=== PATIENT | female | born 1990 | race Caucasian/White ===

== ENCOUNTER → 2017-03-06 | Outpatient (CLI) | payer BC ==
[~2017-03-06] MED LIST: PRENTAB26 PO
== END | disposition home or self-care (01) ==
LOC: C.LABSPEC 16:27
PROVIDERS: ATTEND Physician Assistant
DX: L29.8 Other pruritus (principal)

== ENCOUNTER 2019-05-03 22:28 | Inpatient (IN) ==
[2019-05-04] MEDS ORDERED: OXYTOCIN 30 UNITS/500 ML BAG IV PRN ×3 (00:26→10:19)
[2019-05-04] MEDS: LACTATED RINGER'S 1,000 ML IV PRN ×2 (00:32→05:44)
[2019-05-04] MEDS ORDERED: PENICILLIN G POTASSIUM 6 MU in DEXTROSE 5% 250 ML IV ONE (00:45)
[2019-05-04 00:49] LABS: Hematocrit (blood only) 39.2 % (37-47); Hemoglobin 13.9 g/dL (12.0-16.0); Mean Corpuscular Hemoglobin 32.1 pg (25-34); Mean Corpuscular Volume 90.5 fL (80-100); Mean Platelet Volume 10.1 fL (7.4-10.4); Platelet Count 238 K/uL (130-400); RDW Coefficient of Variation 12.6 % (11.5-14.5); RDW Standard Deviation 41.5 fL (36.4-46.3); Red Blood Count 4.33 M/uL (4.2-5.4); White Blood Count 10.99 K/uL (4.8-10.8)
[2019-05-04 00:55] LABS: Mean Corpuscular Hgb Conc 35.5 g/dL (32-36)
[2019-05-04] MEDS ORDERED: BUPIVACAINE 0.25% 30 ML VIAL ONE (01:00)
[2019-05-04] MEDS ORDERED: ePHEDrine sulfate 50 MG/ML AMP ONE (01:00)
[2019-05-04] MEDS ORDERED: fentaNYL citrate 100 MCG/2 ML VIAL ONE (01:00)
[2019-05-04] MEDS ORDERED: fentaNYL 2MCG/ML ROPIV 1.25MG/ML 100 ML BAG EPI ONE (01:01)
[2019-05-04] MEDS ORDERED: NALOXONE HCL 0.4 MG/1 ML VIAL/CARP IV PRN (01:15)
[2019-05-04] MEDS ORDERED: ONDANSETRON INJ 2 MG/ML 2 ML VIAL IV PRN (01:15)
[2019-05-04] MEDS ORDERED: fentaNYL 2MCG/ML ROPIV 1.25MG/ML 100 ML BAG EPI PRN (01:15)
[2019-05-04] MEDS ORDERED: DiphenhydrAMINE HCL 50 MG/ML VIAL IV PRN (01:15)
[2019-05-04] MEDS ORDERED: NALOXONE HCL 1 MG in SODIUM CHLORIDE 0.9% 1000ML 1,000 ML IV PRN (01:15)
[2019-05-04] MEDS ORDERED: NALBUPHINE HCL INJ 10 MG/ML AMP IV PRN (01:15)
[2019-05-04] MEDS ORDERED: ePHEDrine sulfate 50 MG/ML AMP IV PRN (01:15)
--- NOTE | 2019-05-04 01:22 | Anesthesiology Consultation ---
Date of Service May 04, 2019 Assessment & Plan (1) Encounter for pre-operative examination: Chart Review Chart Review: Patient NOT seen in Pre Admission Testing and Acceptable Risk for Labor Epidural Consults Requested none ASA ASA2 Proposed Anesthesia Anesthesia Type: Labor Epidural Risk / Benefits Reviewed With: PT / POA / Parent / Guardian, Accepts Plan and Informed Consent Obtained History Height/Weight Height: 5 ft Weight: 62.142 kg Allergies Allergy/AdvReac Type Severity Reaction Status Date / Time No Known Drug Allergies Allergy Verified 04/30/19 15:58 Medications Home Medications Medication Instructions Recorded Confirmed Last Taken folic acid 1 tab PO DAILY 04/15/19 05/03/19 05/03/19 lactobacillus combination no.8 1 tab PO DAILY 04/23/19 05/03/19 05/03/19 Active Medications Generic Name Dose Route Start Last Admin Trade Name Freq PRN Reason Stop Dose Admin Lactated Ringer's 1,000 mls @ 125 mls/hr 05/04/19 00:26 05/04/19 01:05 Lr IV 05/06/19 00:25 125 mls/hr .Q8H PRN Infusion L&D Protocol Protocol Ropivacaine 100 ml 05/04/19 01:15 05/04/19 01:49 Epidural (L&D) EPI 05/05/19 01:14 100 ml PRN PRN Administration Pain R/T Labor Protocol NPO Date Last Intake of Fluids: 05/04/19 Time Last Intake of Fluids: 01:19 Date Last Intake of Solids: 05/04/19 Time Last Intake of Solids: 12:30 Past Medical History Medical History Carrier of group B Streptococcus History of ovarian cyst History of varicella Plantar wart of both feet Exercise / Class Metabolic Activity III < 4 Walking/Shop/Light housework Past Family History Family History Grandmother (Maternal) Breast cancer Past Surgical History Surgical History S/P colonoscopy S/P endoscopy S/P wisdom tooth extraction Past Anesthesia History No Hx of Anesthesia Complications History of PONV No Hx of PONV Social History Smoking Status: Never smoker Hx Alcohol Use: No Hx Substance Use: No Review of Systems Patient denies history of abnormal bleeding or bleeding disorder. Patient denies active use of anticoagulants other than low dose aspirin. Patient denies numbness, tingling or weakness in lower extremities. Physical Exam Vital Signs Last Vital Signs Temp 36.8 C 05/03/19 22:42 Pulse 72 05/03/19 22:42 Resp 18 05/03/19 22:42 BP 118/86 05/03/19 22:42 Constitutional not obese gravid uterus ENMT Mouth: no TMJ abnormality and oral opening not small Thyromental Distance: > or= 3.5 Finger Breadths Mallampati Class: II Neck normal visual inspection; neck extension not limited Respiratory normal respiratory effort Cardiovascular Rate/Rhythm: regular rate and regular rhythm Neurologic moves all extremities Motor/Sensory: no sensory deficit Psychiatric Orientation: alert and oriented x 3 Testing Laboratory Results 05/04/19 00:40
[2019-05-04] MEDS ORDERED: CALCIUM CARBONATE 500 MG CHEWABLE TAB PO PRN (02:20)
[2019-05-04] MEDS: PENICILLIN G POTASSIUM 3 MU in DEXTROSE 5% 100 ML IV PRN ×2 (04:26→07:58)
--- NOTE | 2019-05-04 07:49 | History & Physical Report ---
Date of Service May 04, 2019 Admitted in labor. GBS UTI in otherwise uncomplicated Assessment & Plan (1) Normal labor and delivery: admit, GBS prophylaxis History of Present Illness Primary Care Provider: Shashank Baker DO Allergies Allergy/AdvReac Type Severity Reaction Status Date / Time No Known Drug Allergies Allergy Verified 04/30/19 15:58 Home Medications Home Medications Medication Instructions Recorded Confirmed Type folic acid 1 tab PO DAILY 04/15/19 05/03/19 History lactobacillus combination no.8 1 tab PO DAILY 04/23/19 05/03/19 History Patient History Medical History Carrier of group B Streptococcus History of ovarian cyst History of varicella Plantar wart of both feet Surgical History S/P colonoscopy S/P endoscopy S/P wisdom tooth extraction Family History Grandmother (Maternal) Breast cancer Social History Preferred Language: [place] Communication Ability: Effective Rolling [employer] Required: No Beliefs That Will Affect Care: None marital status: Current Living Situation: Spouse and Family Other Information That Helps Us Care for You: No Feels Safe at Home: Yes Safety Concerns: Feels Safe At This Time Smoking Status: Never smoker Hx Alcohol Use: No Hx Substance Use: No Physical Exam Constitutional: WD/WN, vitals as above Respiratory: normal respiratory effort, lungs clear to auscultation Cardiovascular: RRR, no murmur, no edema Genitourinary: Manual OB Exam: + cervical dilation 7 cm, + cervical effacement 100% and + station 0 Results & Data Vital Signs (Past 12 Hours) Vital Signs Temp Pulse Resp BP Pulse Ox 05/04/19 07:42 63 114/71 05/04/19 07:40 69 98 05/04/19 07:35 78 98 05/04/19 07:30 80 98 05/04/19 07:27 72 112/62 05/04/19 07:24 63 97 05/04/19 07:19 63 97 05/04/19 07:14 68 98 05/04/19 07:11 67 105/72 05/04/19 07:09 68 98 05/04/19 07:04 68 98 05/04/19 06:59 67 98 05/04/19 06:57 65 112/71 05/04/19 06:54 77 98 05/04/19 06:50 85 93 05/04/19 06:49 84 94 05/04/19 06:44 65 97 05/04/19 06:42 62 101/61 05/04/19 06:39 67 97 05/04/19 06:34 62 98 05/04/19 06:29 79 98 05/04/19 06:28 55 L 100/57 L 05/04/19 06:24 64 96 05/04/19 06:19 58 L 96 05/04/19 06:14 74 98 05/04/19 06:12 53 L 96/55 L 05/04/19 06:09 61 97 05/04/19 06:04 58 L 98 05/04/19 05:59 61 97 05/04/19 05:57 98.2 F 55 L 18 99/58 L 05/04/19 05:54 58 L 97 05/04/19 05:49 56 L 96 05/04/19 05:44 62 97 05/04/19 05:42 71 105/52 L 05/04/19 05:41 66 93 05/04/19 05:39 61 98 05/04/19 05:34 74 96 05/04/19 05:29 67 98 05/04/19 05:24 77 99 05/04/19 05:19 64 96 05/04/19 05:14 59 L 97 05/04/19 05:11 67 96/59 L 05/04/19 05:09 63 96 05/04/19 05:04 62 97 05/04/19 04:59 58 L 97 05/04/19 04:56 56 L 98/57 L 05/04/19 04:54 59 L 97 05/04/19 04:49 61 97 05/04/19 04:44 69 98 05/04/19 04:42 67 104/67 05/04/19 04:39 66 98 05/04/19 04:34 66 98 05/04/19 04:29 85 97 05/04/19 04:27 71 103/72 05/04/19 04:24 74 98 05/04/19 04:19 64 98 05/04/19 04:14 87 97 05/04/19 04:13 84 115/71 05/04/19 04:12 78 94 05/04/19 04:09 62 97 05/04/19 04:04 61 97 05/04/19 03:59 78 97 05/04/19 03:57 67 110/71 05/04/19 03:54 75 97 05/04/19 03:49 67 97 05/04/19 03:44 63 96 05/04/19 03:42 71 109/73 05/04/19 03:39 63 97 05/04/19 03:34 69 97 05/04/19 03:29 70 98 05/04/19 03:26 79 107/71 05/04/19 03:24 64 97 05/04/19 03:19 63 97 05/04/19 03:14 81 97 05/04/19 03:13 61 111/70 05/04/19 03:09 73 97 05/04/19 03:04 86 98 05/04/19 03:00 98.2 F 16 05/04/19 02:59 64 97 05/04/19 02:58 71 109/72 05/04/19 02:54 67 97 05/04/19 02:49 77 97 05/04/19 02:44 70 97 05/04/19 02:41 82 112/69 05/04/19 02:39 67 97 05/04/19 02:34 64 98 05/04/19 02:30 18 05/04/19 02:29 70 98 05/04/19 02:26 75 112/74 05/04/19 02:24 66 117/79 99 05/04/19 02:22 76 122/72 93 05/04/19 02:20 73 122/71 05/04/19 02:19 76 99 05/04/19 02:18 71 108/68 05/04/19 02:16 96 H 112/86 05/04/19 02:15 18 05/04/19 02:14 72 112/77 98 05/04/19 02:12 93 H 112/77 05/04/19 02:10 77 117/80 05/04/19 02:09 83 97 05/04/19 02:08 75 113/77 05/04/19 02:06 68 119/76 05/04/19 02:04 81 113/77 98 05/04/19 02:02 69 120/81 05/04/19 02:00 65 18 118/74 05/04/19 01:59 68 98 05/04/19 01:58 72 113/73 05/04/19 01:56 75 114/73 05/04/19 01:55 18 05/04/19 01:54 75 121/74 98 05/04/19 01:52 78 119/75 05/04/19 01:50 76 16 119/69 05/04/19 01:49 70 98 05/04/19 01:48 90 114/74 05/04/19 01:46 75 112/69 05/04/19 01:44 90 18 121/78 99 05/04/19 01:39 80 100 05/04/19 01:34 75 100 05/04/19 01:31 79 90 05/04/19 01:29 82 100 05/04/19 01:24 88 98 05/04/19 01:19 71 100 05/03/19 22:42 98.2 F 72 18 118/86 05/03/19 22:37 72 118/86
--- NOTE | 2019-05-04 09:09 | Labor Progress Brief Note ---
Date of Service May 04, 2019 Subjective Reason For Note: Other (Change of shift) The patient is a 29-year-old 2 para 1 with an EDC of 13 May, at 38+ weeks gestational age, who was admitted in active labor. The patient had a benign course. Her blood type was A+, antibody negative, rubella immune, hepatitis B negative, she declined all genetic screening, she had a normal 1 hour Glucola x2, positive GBS bacteria. The patient progressed and labor, epidural was placed, she had spontaneous rupture of membranes. She was started on penicillin for her GBS status. Assessment & Plan (1) Supervision of normal intrauterine in multigravida: -Tracing category 2 with accelerations and variability -Begin second stage Physical Exam Gastrointestinal (Abdomen): Abdomen: Gravid, vertex, positive heart tones, estimated weight of 7 pounds Genitourinary: Cervix: Complete/+2 station Results & Data Vital Signs (Past 12 Hours) Vital Signs Temp Pulse Resp BP Pulse Ox 05/04/19 09:00 73 97 05/04/19 08:57 73 114/70 05/04/19 08:55 69 98 05/04/19 08:50 71 97 05/04/19 08:45 67 97 05/04/19 08:42 79 103/72 05/04/19 08:41 77 94 05/04/19 08:40 66 98 05/04/19 08:35 78 99 05/04/19 08:30 78 98 05/04/19 08:26 73 106/70 93 05/04/19 08:25 67 96 05/04/19 08:20 64 97 05/04/19 08:15 60 98 05/04/19 08:12 63 107/73 05/04/19 08:10 62 97 05/04/19 08:05 67 99 05/04/19 08:00 69 97 05/04/19 07:58 67 111/73 88 L 05/04/19 07:55 69 98 05/04/19 07:50 64 97 05/04/19 07:45 70 97 05/04/19 07:42 63 114/71 05/04/19 07:40 69 98 05/04/19 07:35 78 98 05/04/19 07:30 80 98 05/04/19 07:27 72 112/62 05/04/19 07:24 63 97 05/04/19 07:19 63 97 05/04/19 07:14 68 98 05/04/19 07:11 67 105/72 05/04/19 07:09 68 98 05/04/19 07:04 68 98 05/04/19 06:59 67 98 05/04/19 06:57 65 112/71 05/04/19 06:54 77 98 05/04/19 06:50 85 93 05/04/19 06:49 84 94 05/04/19 06:44 65 97 05/04/19 06:42 62 101/61 05/04/19 06:39 67 97 05/04/19 06:34 62 98 05/04/19 06:29 79 98 05/04/19 06:28 55 L 100/57 L 05/04/19 06:24 64 96 05/04/19 06:19 58 L 96 05/04/19 06:14 74 98 05/04/19 06:12 53 L 96/55 L 05/04/19 06:09 61 97 05/04/19 06:04 58 L 98 05/04/19 05:59 61 97 05/04/19 05:57 98.2 F 55 L 18 99/58 L 05/04/19 05:54 58 L 97 05/04/19 05:49 56 L 96 05/04/19 05:44 62 97 05/04/19 05:42 71 105/52 L 05/04/19 05:41 66 93 05/04/19 05:39 61 98 05/04/19 05:34 74 96 05/04/19 05:29 67 98 05/04/19 05:24 77 99 05/04/19 05:19 64 96 05/04/19 05:14 59 L 97 05/04/19 05:11 67 96/59 L 05/04/19 05:09 63 96 05/04/19 05:04 62 97 05/04/19 04:59 58 L 97 05/04/19 04:56 56 L 98/57 L 05/04/19 04:54 59 L 97 05/04/19 04:49 61 97 05/04/19 04:44 69 98 05/04/19 04:42 67 104/67 05/04/19 04:39 66 98 05/04/19 04:34 66 98 05/04/19 04:29 85 97 05/04/19 04:27 71 103/72 05/04/19 04:24 74 98 05/04/19 04:19 64 98 05/04/19 04:14 87 97 05/04/19 04:13 84 115/71 05/04/19 04:12 78 94 05/04/19 04:09 62 97 05/04/19 04:04 61 97 05/04/19 03:59 78 97 05/04/19 03:57 67 110/71 05/04/19 03:54 75 97 05/04/19 03:49 67 97 05/04/19 03:44 63 96 05/04/19 03:42 71 109/73 05/04/19 03:39 63 97 05/04/19 03:34 69 97 05/04/19 03:29 70 98 05/04/19 03:26 79 107/71 05/04/19 03:24 64 97 05/04/19 03:19 63 97 05/04/19 03:14 81 97 05/04/19 03:13 61 111/70 05/04/19 03:09 73 97 05/04/19 03:04 86 98 05/04/19 03:00 98.2 F 16 05/04/19 02:59 64 97 05/04/19 02:58 71 109/72 05/04/19 02:54 67 97 05/04/19 02:49 77 97 05/04/19 02:44 70 97 05/04/19 02:41 82 112/69 05/04/19 02:39 67 97 05/04/19 02:34 64 98 05/04/19 02:30 18 05/04/19 02:29 70 98 05/04/19 02:26 75 112/74 05/04/19 02:24 66 117/79 99 05/04/19 02:22 76 122/72 93 05/04/19 02:20 73 122/71 05/04/19 02:19 76 99 05/04/19 02:18 71 108/68 05/04/19 02:16 96 H 112/86 05/04/19 02:15 18 05/04/19 02:14 72 112/77 98 05/04/19 02:12 93 H 112/77 05/04/19 02:10 77 117/80 05/04/19 02:09 83 97 05/04/19 02:08 75 113/77 05/04/19 02:06 68 119/76 05/04/19 02:04 81 113/77 98 05/04/19 02:02 69 120/81 05/04/19 02:00 65 18 118/74 05/04/19 01:59 68 98 05/04/19 01:58 72 113/73 05/04/19 01:56 75 114/73 05/04/19 01:55 18 05/04/19 01:54 75 121/74 98 05/04/19 01:52 78 119/75 05/04/19 01:50 76 16 119/69 05/04/19 01:49 70 98 05/04/19 01:48 90 114/74 05/04/19 01:46 75 112/69 05/04/19 01:44 90 18 121/78 99 05/04/19 01:39 80 100 05/04/19 01:34 75 100 05/04/19 01:31 79 90 05/04/19 01:29 82 100 05/04/19 01:24 88 98 05/04/19 01:19 71 100 05/03/19 22:42 98.2 F 72 18 118/86 05/03/19 22:37 72 118/86
--- NOTE | 2019-05-04 09:35 | Delivery Summary ---
Vaginal Delivery Summary Date of Service May 04, 2019 Findings: Viable female infant with Apgars of 8 and 9 nuchal cord x1 reduced on the perineum cord blood samples obtained placenta delivered spontaneously right labial laceration repaired with 4-0 Vicryl interrupted sutures estimated blood loss 300 cc sponge and needle count was correct Labor note: The patient is a 29-year-old 2 para 1 with an EDC of 13 May at 38+ weeks gestational age who was admitted in active labor. The patient had had a benign course. Blood type is A+, antibody negative, rubella immune, hepatitis B negative, she declined all genetic screening, she had a normal 1 hour Glucola x2, and she had positive GBS bacteria. Upon admission the patient was deemed to be in active labor. She was started on penicillin, 6,000,000 unit loading dose, then 3,000,000 units every 4 hours till delivery. The patient was uncomfortable, anesthesia was consulted and an epidural was placed. Patient had spontaneous rupture of membranes around the time of placement of the epidural. Delivering physician assumed care for the patient at this point. First examination showed the patient to be fully dilated and a +2 station. Patient began her second stage and pushed for 2 contractions delivering the viable female infant. Nuchal cord x1 was delivered on the perineum. Cord was clamped and cut, cord blood samples were obtained, and placenta was delivered spontaneously. Inspection of the perineum showed a second-degree right labial tear. This was repaired with interrupted 4-0 Vicryl sutures. Estimated blood loss for the delivery 300 cc. Sponge needle count was correct.
[2019-05-04] MEDS ORDERED: ACETAMINOPHEN 325 MG TAB PO PRN (10:19)
[2019-05-04] MEDS ORDERED: HYDROCORTISONE ACETATE 25 MG SUPP PR PRN (10:19)
[2019-05-04] MEDS ORDERED: BENZOCAINE 20% AER SPR 82.5 GM CAN EXT PRN (10:19)
[2019-05-04] MEDS ORDERED: DIPHTHERIA/TETANUS/PERTUSSIS 0.5 ML SYR/VIAL IM ONE (10:19)
[2019-05-04] MEDS ORDERED: ACETAMINOPHEN W/CODEINE #3 1 TAB PO PRN (10:19)
--- NOTE | 2019-05-04 11:02 | Anesthesia Procedure Note ---
Date of Service May 04, 2019 Anesthesia Post Epidural Note Vital Signs Vital Signs: Temp Pulse Resp BP Pulse Ox 36.8 C 129 H 18 110/71 97 05/04/19 05:57 05/04/19 10:56 05/04/19 05:57 05/04/19 10:56 05/04/19 09:25 Notes Mental Status: alert / awake / arousable Nausea / Vomiting: adequately controlled Pain: adequately controlled Airway Patency, RR, SpO2: stable & adequate BP & HR: stable & adequate Hydration State: stable & adequate Neuraxial Anesthesia: was administered and sensory block is resolving Anesthetic Complications: no major complications apparent and Pt Satisfied with anesthetic care Epidural: Removed without complications and With tip intact
[2019-05-04] MEDS: SUPERCREAM 0.870% 15 GM JAR EXT PRN (15:26)
[2019-05-04] MEDS: IBUPROFEN 600 MG TAB PO PRN (19:15)
[2019-05-04] MEDS: DOCUSATE SODIUM 100 MG CAP PO SCH (20:27)
[2019-05-05] MEDS: IBUPROFEN 600 MG TAB PO PRN ×2 (00:08→08:22)
--- NOTE | 2019-05-05 06:26 | Obstetrical Progress Note ---
Date of Service <Harper Ruiz DO - Last Filed: 05/05/19 07:55> May 05, 2019 Assessment & Plan <Harper Ruiz DO - Last Filed: 05/05/19 07:55> (1) Encounter for care and examination after delivery: 26 yo F PPD #1 following vaginal delivery at 38+weeks, doing well and without complaints this morning. - PPD #1 - Received penicillin for GBS status; afebrile and without signs or symptoms of infection overnight. - Feels well, ambulating well, voiding well. - Plan for discharge later today pending peds eval; likely will go home after dinner. - Following d/c will have f/u in 6 weeks. - Blood type A+, Rubella immune. Subjective <Harper Ruiz - Last Filed: 05/05/19 07:55> Carrie is a 29 yo female ; PPD # 1 following vaginal delivery at 38+; doing well this AM; no abdominal cramping/pain; voiding well, able to ambulate some within the room. Some persistent spotting this morning but improved from yesterday. Baby is latching well. Mom would like to go home later today. Review of Systems Constitutional: denies fever, chills, sweats, headache Respiratory: denies SOB, difficulty breathing Cardiac: denies CP, chest palpitations, chest pressure Breast: denies breast pain : denies dysuria Physical Exam <Harper Ruiz - Last Filed: 05/05/19 07:55> General: patient is alert and oriented, in NAD Cardiac: +S1/S2, no murmurs rubs or gallops Respiratory: lungs CTA b/l, anteriorly and posteriorly, no wheezes rales or rhonchi, no increased work of breathing, symmetric chest rise, no respiratory distress Abdomen: soft, NT, +bowel sounds Uterus: uterine fundus firm and palpable below the level of the umbilicus Lower Extremities: no LE edema or swelling, no deep calf pain, Ilene's sign negative b/l Results & Data <Harper Ruiz - Last Filed: 05/05/19 07:55> Vital Signs (Past 12 Hours) Vital Signs Temp Pulse Resp BP 05/05/19 00:15 36.7 C 74 20 102/68 05/04/19 20:15 36.9 C 74 20 117/79 Laboratory Results Laboratory Results - last 24 hr 05/05/19 06:47 WBC 9.20 RBC 4.17 L Hgb 13.0 Hct 38.0 MCV 91.1 MCH 31.2 MCHC 34.2 RDW Std Deviation 42.2 RDW Coeff of Raisa 12.8 Plt Count 181 MPV 9.9 Medications Administered Current Medications Acetaminophen (Tylenol) 650 mg PO Q6H PRN PRN Reason: Pain/SHEIKH/Fever Stop: 06/03/19 10:18 Acetaminophen/Codeine Phosphate (Tylenol W/Codeine #3) 1 - 2 tab PO Q4H PRN PRN Reason: Pain not controlled with... Stop: 06/03/19 10:18 Benzocaine (Dermoplast Pain Relieving [place]) 1 appln EXT PRN PRN PRN Reason: Perineal Discomfort Stop: 06/03/19 10:18 Last Admin: 05/04/19 15:26 Dose: 1 appln Documented by: Bisacodyl (Dulcolax) 5 mg PO 1999 [facility] Stop: 05/05/19 20:01 Cocaine HCl (Supercream 0.870%) 1 gm EXT BID PRN PRN Reason: Hemorrhoidal Inflammation Stop: 05/18/19 10:18 Last Admin: 05/04/19 15:26 Dose: 1 gm Documented by: Docusate Sodium (Colace) 100 mg PO DAILY@08,21 [facility] Stop: 06/03/19 20:59 Last Admin: 05/04/19 20:27 Dose: 100 mg Documented by: Hydrocortisone (Anusol Hc) 25 mg IN BID PRN PRN Reason: Hemorrhoidal Inflammation Stop: 06/03/19 10:18 Oxytocin (Pitocin) 30 units in 500 mls @ 333.333 mls/hr IV .Q1H30M PRN; Protocol PRN Reason: Bleeding Control Stop: 06/03/19 10:18 Last Admin: 05/04/19 09:20 Dose: 20 units/hr, 333.3 mls/hr Documented by: Ibuprofen (Motrin) 600 mg PO Q4H PRN PRN Reason: Pain/SHEIKH/Cramping/Fever Stop: 06/03/19 10:18 Last Admin: 05/05/19 00:08 Dose: 600 mg Documented by: Prenat Multivit/Bonnie/Iron/Folic Ac ( Vitamin) 1 tab PO DAILY@08 JUDY Stop: 06/04/19 07:59 <Hero Billy Jr, MD, FACOG - Last Filed: 05/05/19 08:03> Co-Signing Physician Notes Resident Physician Supervision Note: I was present with Dr. Ruiz during the history and exam. I discussed the case with the resident and agree with the findings and plan as documented in the note. Any exceptions or clarifications are listed here: patient desires discharge, instructions given, f/u in 6 weeks Documented By: Hero Billy Jr, MD, FACOG Resident Activity Tracking <Harper Ruiz DO - Last Filed: 05/05/19 07:55> Resident Involvement: Resident Care Provided Care Provided: Adult Hospital Medicine
[2019-05-05 07:05] LABS: Mean Corpuscular Hemoglobin 31.2 pg (25-34); Mean Corpuscular Hgb Conc 34.2 g/dL (32-36); Mean Corpuscular Volume 91.1 fL (80-100); Mean Platelet Volume 9.9 fL (7.4-10.4); Platelet Count 181 K/uL (130-400); RDW Coefficient of Variation 12.8 % (11.5-14.5); RDW Standard Deviation 42.2 fL (36.4-46.3); Red Blood Count 4.17 M/uL (4.2-5.4)
[2019-05-05] MEDS ORDERED: PRENATAL VITAMIN 1 TAB PO SCH (08:00)
[2019-05-05 08:10] VITALS: BP 110/67; PULSE 77; TEMP 98.2; O2SAT 98
[2019-05-05] MEDS: DOCUSATE SODIUM 100 MG CAP PO SCH (08:20)
[2019-05-05] MEDS: SUPERCREAM 0.870% 15 GM JAR EXT PRN (12:39)
[2019-05-05] MEDS ORDERED: bisacodyL 5 MG TABEC PO SCH (20:00)
== END 2019-05-05 14:10 | disposition home or self-care (01) | DRG 807 ==
LOC: OPB 22:28 → 4S1 22:29 → 4S2 05-04 13:10